=== PATIENT | female | born 1970 | race Caucasian/White ===

== ENCOUNTER → 2017-08-22 08:09 | Outpatient (POV) | payer BC, SELFPAY | PROVIDERS: Visit Provider Dermatology | DX: Z00.00 Encounter for general adult medical examination without abnormal findings (principal) ==

== ENCOUNTER 2021-04-29 10:50 | Emergency (ER) | payer BC, SELFPAY ==
[2021-04-29 11:03] VITALS: BP 143/92; PULSE 71; RESP 14; TEMP 36.4; O2SAT 99; BMI 22.8
--- NOTE | 2021-04-29 12:07 | HMH.EDUTC ---
[facility] [place] Clinical Impression: Viral syndrome Sinusitis Qualifiers: Sinusitis location: unspecified location Chronicity: acute Recurrence: non-recurrent Qualified Code(s): J01.90 - Acute sinusitis, unspecified Disposition: Home, Self-Care Condition on Discharge: Good Instructions: DI for Sinusitis, DI for Viral Syndrome, Preventing the Spread of Coronavirus Discharge Instructions Additional Instructions: Drink plenty of fluids. Take tylenol or ibuprofen for pain or fever. Take the medications as directed. Follow up with your regular doctor. GO TO THE ER FOR ANY WORSENING SYMPTOMS Quarantine until you know the results of your covid-19 test. If it is positive, the health department should call you and give you further instructions about your length of Quarantine and other things. Notify your school or workplace of your results and follow their instructions regarding return to work/school. Prescriptions: predniSONE [Deltasone 10mg tablet] 10 mg PO BID 3 Days #6 tab Transmission Status: Received by [facility] #[id number] guaiFENesin [Mucinex 600mg tablet] 1 - 2 tab PO BIDP PRN #30 tab PRN Reason: Congestion Transmission Status: Received by [facility] #[id number] Azithromycin [Z-Sameer 250mg Tab*] 250 mg PO UD DOSE PK #6 tab Transmission Status: Received by [employer] [facility] #[id number] Referrals: Provider,Referral, MD [Primary Care Provider] - Time of Disposition: 12:09 Medical Decision Making - Medical Records Medical records reviewed: No: I reviewed the patient's medical records. - Richard Inquiry Pt receiving controlled substance: No Vital Signs: 04/29/21 11:03 04/29/21 12:21 Temperature 97.5 F L 97.5 F L Temperature Source Oral Pulse Rate 71 Pulse Rate [Left] 71 Respiratory Rate 14 18 Blood Pressure 143/92 H Blood Pressure [Right Arm] 143/92 H Blood Pressure Mean [Right Arm] 109 02 Sat by Pulse Oximetry 99 - Lab Data Lab results reviewed: Yes: I reviewed the patient's lab results. Lab Results 04/29/21 12:06: Chlamy pneumoniae PCR Not detected, Adenovirus (PCR) Not detected, B. pertussis DNA (PCR) Not detected, Coronavirus OC43 (PCR) Not detected, Coronavirus HKU1 (PCR) Not detected, Coronavirus 229E (PCR) Not detected, SARS-CoV-2 (PCR) Not detected, Coronavirus NL63 (PCR) Not detected, Human Metapneumovir PCR Not detected, Influenza A (H1) PCR Not detected, Influ A (H1N1/09) PCR Not detected, Influenza A (H3) PCR Not detected, Influenza Type A (PCR) Not detected, Influenza Type B (PCR) Not detected, M. pneumoniae (PCR) Not detected, Parainfluenza 1 (PCR) Not detected, Parainfluenza 2 (PCR) Not detected, Parainfluenza 3 (PCR) Not detected, Parainfluenza 4 (PCR) Not detected, RSV (PCR) Not detected, Entero/Rhino (PCR) Detected A [facility] [place] - General Stated complaint: congestion, sinus H/A Time Seen by Provider: 04/29/21 11:15 Mode of Arrival: Ambulatory Source of Information: Patient Limitations: No Limitations Description of Symptoms (Recalled from Triage Doc. by RN): pt c/o a WILSON and sinus pain/pressure HEENT Symptoms (Recalled from RN notes): Yes (sinus drainage/pressure and WILSON) Resp Symptoms (Recalled from RN notes): No Skin Symptoms (Recalled from RN notes): No MS Symptoms (Recalled from RN notes): No Functional Status (Recalled from RN notes): na - History of Present Illness Provider Complaint: She c/o sinus congestion and sinus pressure for the past 2 days. - Related Data Home Medications Medication Instructions Recorded Confirmed Propranolol HCl 10 mg PO TID 03/12/19 03/12/19 Previous Rx's Medication Instructions Recorded ondansetron HCL [Zofran 8mg Tab] 8 mg PO TID 2 Days #6 tab 03/12/19 Azithromycin [Z-Sameer 250mg Tab*] 250 mg PO UD DOSE PK #6 tab 04/29/21 guaiFENesin [Mucinex 600mg tablet] 1 - 2 tab PO BIDP PRN #30 tab 04/29/21 predniSONE [Deltasone 10mg tablet] 10 mg PO BID 3 Days #6 tab 04/29/21 Allergies Allergy/AdvRea
[2021-04-29 12:21] VITALS: BP 143/92; PULSE 71; RESP 18; TEMP 36.4
[2021-04-29 12:28] LABS: Adenovirus,PCR Not Detected (NotDetected); Bordetella Pertussis Not Detected (NotDetected); Chlamydophila Pneumoniae, PCR Not Detected (NotDetected); Coronavirus 19, PCR Not Detected (NotDetected); Coronavirus 229E Not Detected (NotDetected); Coronavirus NL63 Not Detected (NotDetected); Coronavirus OC43 Not Detected (NotDetected); Coronovirus HKU1,PCR Not Detected (NotDetected); Human Metapneumovirus Not Detected (NotDetected); Influenza A, PCR Not Detected (NotDetected); Influenza AH1, 2009 Not Detected (NotDetected); Influenza AH1, PCR Not Detected (NotDetected); Influenza AH3,PCR Not Detected (NotDetected); Influenza B, PCR Not Detected (NotDetected); Mycoplasma Pneumoniae, PCR Not Detected (NotDetected); Parainfluenza 1, PCR Not Detected (NotDetected); Parainfluenza 2, PCR Not Detected (NotDetected); Parainfluenza 3, PCR Not Detected (NotDetected); Parainfluenza 4, PCR Not Detected (NotDetected); Respiratory Syncytial Virus Not Detected (NotDetected)
[2021-04-29 15:13] LABS: Rhinovirus/Enterovirus Detected (NotDetected)
== END 2021-04-29 12:22 | disposition home or self-care (01) ==
PROVIDERS: Emergency Provider Nurse Practitioner Family
DX: J01.90 Acute sinusitis, unspecified (principal); B34.9 Viral infection, unspecified; Z88.0 Allergy status to penicillin
CPT/HCPCS: 87581; 87632; 87798; 99202; C9803; G0463; U0003; U0005

== ENCOUNTER 2023-03-20 07:38 | Day surgery (SDC) | payer BC, SELFPAY ==
[2023-02-27 15:00] VITALS: BMI 23.6
[2023-03-20 07:55] VITALS: BP 124/81; PULSE 75; RESP 18; TEMP 36.5; O2SAT 99
[2023-03-20 08:00] LABS: Urine Pregnancy, HCG Qual. Negative (Negative)
--- NOTE | 2023-03-20 08:12 | EXP.ANES.CKL ---
[facility] Disclaimer: The information contained in this section may have been updated after the patient was seen, as this information can be updated by other users. Medical History History of gastroesophageal reflux (GERD) Hypertension Surgical History H/O tubal ligation History of section History of reconstruction of both breasts Hx of bilateral mastectomy Family History Mother Family history of cancer Grandmother Family history of cancer Other Family history of diabetes mellitus type II Family history of myocardial infarction Social History Smoking Status: Former smoker alcohol intake: current substance use type: denies use current occupational status: employed Travel in the last 8 weeks: None household members: significant other housing: house marital status: single caffeine: Yes [facility] Anesthesia Checklist Patient Identification Patient Identification: Arm Band and Verbal (Name & ) Structural Data Admitted From: Home Planned Operative Procedure/s: Colonoscopy Consent for Planned Operative Procedure(s) Verified: Yes NPO Status Verified Time NPO: 00:00 Additional verifications Anesthesia Reactions: No Airway Assessment Mallampati Score:: Class I C-Spine Mobility Assessed: Yes TMJ Mobility Assessed: Yes Dentition: Good Dentition Neurological Assessment Level of Consciousness: Awake Hx Seizures: No Numbness or tingling in extremities: No Anesthesia Plan Anesthesia Risk discussed: Yes Anesthesia Plan: Verified ASA Class: II Anesthesia Type: MAC
[2023-03-20 09:01] VITALS: O2SAT 99
--- NOTE | 2023-03-20 09:29 | HMH.SCOPE ---
Procedure: Date: 03/20/23 Patient Date of :: 1970 Procedure Performed:: Colonoscopy Indications:: Colorectal cancer screening Performing Provider:: Ovi Graham MD Referring Provider:: Lopez Portillo PA-C Sedation:: See RN notes Procedure:: After placing the patient in the left lateral decubitus position, the colonoscopy was gently inserted into the rectum and under direct visualization advanced to the cecum which was identified by transillumination in the right lower quadrant, identification of the ileocecal valve, appendiceal orifice, and cecal strap. Color, texture, mucosa, and anatomy of the colon were carefully examined with the scope. Findings:: Anal canal: normal Rectum: normal Sigmoid colon: Sessile polyp 4 mm in size. Removed with cold snare Descending colon: Diverticulosis Splenic flexure: normal Transverse colon: normal without polyps or inflammatory changes Hepatic flexure: normal Ascending colon: normal without polyps or inflammatory changes Cecum: normal Terminal ileum: not visualized Impression: Polyp of sigmoid colon Diverticulosis Recommendations:: Await pathology results Higher fiber diet Repeat colonoscopy in 5-10 years (5 years if polyps is adenoma) Complications:: none Estimated blood obtained (mL): 0 Colonoscopy Component Colonoscopy Component Was a colonoscopy performed during today's procedure?: Yes Recommended follow up colonoscopy of at least 10 years?: Yes
[2023-03-20 09:30] VITALS: BP 108/57; PULSE 73; RESP 16; TEMP 36.3; O2SAT 98
--- NOTE | 2023-03-20 09:39 | SUR.PHASEII ---
0930-pt arrived in postop with oral airway in place
[2023-03-20 09:40] VITALS: BP 127/63; PULSE 64; RESP 16; TEMP 36.3; O2SAT 100
[2023-03-20 09:50] VITALS: BP 131/74; PULSE 71; RESP 18; O2SAT 98
[2023-03-20 10:05] VITALS: BP 120/58; PULSE 71; RESP 18; TEMP 36.9; O2SAT 100
== END 2023-03-20 10:05 | disposition home or self-care (01) ==
PROVIDERS: PCP Physician Assistant; Visit Provider Internal Medicine
PROC: 0DJD8ZZ Inspection of Lower Intestinal Tract, Via Natural or Artificial Opening Endoscopic (ICD-10-PCS; CPT 45378; principal; 2023-03-20 09:00)
DX: Z12.11 Encounter for screening for malignant neoplasm of colon (principal); K57.30 Diverticulosis of large intestine without perforation or abscess without bleeding; K63.5 Polyp of colon
CPT/HCPCS: 45385; 81025

== ENCOUNTER 2024-01-21 15:29 | Outpatient (POV) | payer BC, SELFPAY | END 2024-01-21 23:59 | disposition home or self-care (01) | LOC: SC 15:30 | PROVIDERS: PCP Physician Assistant; Visit Provider Dermatology | DX: Z00.00 Encounter for general adult medical examination without abnormal findings (principal) ==